=== PATIENT | male | born 1985 | race Caucasian/White ===

== ENCOUNTER 2021-03-06 14:09 | Day surgery (SDC) | payer BC, OTHER ==
[~2021-03-06] VITALS: Ht 195.6 cm; Wt 102.2 kg
[~2021-03-06 14:09] MED LIST: DULO60CA7 PO; OXYC-380 PO
[2021-03-06 14:25] VITALS: BP 127/83
[2021-03-06] MEDS ORDERED: CHLORHEXIDINE 15 ML UDC PO ONE (14:30)
[2021-03-06] MEDS ORDERED: LACTATED RINGERS 1,000 ML IV SCH (14:30)
[2021-03-06] MEDS ORDERED: CEFAZOLIN 1,000 MG ONE (16:59)
[2021-03-06] MEDS ORDERED: ONDANSETRON 2MG/ML, 2ML ONE (16:59)
[2021-03-06] MEDS ORDERED: DEXAMETHASONE 4 MG/ML, 1ML ONE (16:59)
[2021-03-06] MEDS ORDERED: ROCURONIUM 10 MG/ML,10ML ONE (16:59)
[2021-03-06] MEDS ORDERED: SUCCINYLCHOLINE 20 MG/ML, 10ML ONE (16:59)
[2021-03-06] MEDS ORDERED: PROPOFOL 10 MG/ML, 20ML ONE (16:59)
[2021-03-06] MEDS ORDERED: MIDAZOLAM 1 MG/ML, 2ML ONE (17:02)
[2021-03-06] MEDS ORDERED: ONDANSETRON 2MG/ML, 2ML IVPush PRN (17:30)
[2021-03-06] MEDS ORDERED: LABETALOL 5MG/ML, 20ML IV PRN (17:30)
[2021-03-06] MEDS ORDERED: MEPERIDINE/PF 25MG/0.5ML IVPush PRN (17:30)
[2021-03-06] MEDS ORDERED: ALBUTEROL SULFATE 2.5 MG/3 ML NPPB PRN (17:30)
[2021-03-06] MEDS ORDERED: OXYcodone 5 MG/5 ML ORAL.SOL UDC PO PRN (17:30)
[2021-03-06] MEDS ORDERED: DIAZEPAM 5 MG/ML, 2ML IV PRN ×2 (17:30)
[2021-03-06] MEDS ORDERED: PROMETHAZINE 25 MG/ML, 1ML IV PRN (17:30)
[2021-03-06] MEDS ORDERED: hydrALAzine 20 MG/ML, 1ML IV PRN (17:30)
[2021-03-06] MEDS ORDERED: KETOROLAC 30 MG/1 ML IV PRN (17:30)
[2021-03-06] MEDS ORDERED: METOCLOPRAMIDE 5 MG/ML, 2ML IV PRN (17:30)
[2021-03-06] MEDS ORDERED: FENTANYL PF 100 MCG/2ML ONE ×3 (17:40→18:35)
[2021-03-06] MEDS ORDERED: MEPERIDINE/PF 25MG/ML,1ML ONE (17:54)
[2021-03-06] MEDS: FENTANYL PF 100 MCG/2ML IV PRN ×3 (18:00→18:39)
[2021-03-06] MEDS ORDERED: OXYcodone 5 MG/5 ML ORAL.SOL UDC ONE (18:04)
[2021-03-06] MEDS ORDERED: HYDROmorphone 1 MG/ML, 1ML INJ ONE ×2 (18:04→18:35)
[2021-03-06] MEDS: HYDROmorphone 1 MG/ML, 1ML INJ IV PRN ×4 (18:05→19:00)
[2021-03-06] MEDS ORDERED: DIAZEPAM 5 MG/ML, 2ML ONE (18:42)
== END 2021-03-06 21:05 | disposition home or self-care (01) ==
LOC: OUT 14:09
PROVIDERS: ATTEND Urology
DX: N20.0 Calculus of kidney (principal); Z20.822 Contact with and (suspected) exposure to COVID-19; Z79.899 Other long term (current) drug therapy; Z87.442 Personal history of urinary calculi
CPT/HCPCS: 52356; 74018; 87635; C1769; C2617; J0330; J0690; J1100; J1170; J2175; J2250; J2405; J2704; J3010; J3360; J7120; 76000